=== PATIENT | male | born 2000 | race American Indian/Alaskan Native ===

== ENCOUNTER 2020-09-23 18:00 | Emergency (ER) | payer SELFPAY ==
[2020-09-23 18:30] VITALS: BP 111/70
[2020-09-23] MEDS ORDERED: IBUPROFEN 600 MG TAB PO ONE (21:13)
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
== END 2020-09-23 23:44 | disposition home or self-care (01) ==
LOC: ED 18:00
DX: M62.830 Muscle spasm of back (principal); M62.838 Other muscle spasm; Z79.899 Other long term (current) drug therapy; V49.49XA Driver injured in collision with other motor vehicles in traffic accident, initial encounter; Y92.410 Unspecified street and highway as the place of occurrence of the external cause; Y93.89 Activity, other specified; Y99.8 Other external cause status
CPT/HCPCS: 72100; 72125

== ENCOUNTER 2021-03-27 21:16 | Emergency (ER) | payer SELFPAY ==
[2021-03-27 22:18] VITALS: BP 135/65
--- NOTE | 2021-03-27 23:23 | XRay Report ---
CHEST 2 VIEWS INDICATION / CLINICAL INFORMATION: chest pain. COMPARISON: None available. FINDINGS: SUPPORT DEVICES: None. HEART / MEDIASTINUM: No significant abnormality. LUNGS / PLEURA: No significant pulmonary or pleural abnormality. No pneumothorax. ADDITIONAL FINDINGS: No significant additional findings. IMPRESSION: 1. No acute findings. Signer Name: Bennie Christiansen MD Signed: 03/27/2021 11:18 PM Workstation Name: [id number]
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
== END 2021-03-28 04:26 | disposition home or self-care (01) ==
LOC: ED 21:16
DX: R07.9 Chest pain, unspecified (principal)
CPT/HCPCS: 71046; 99283